=== PATIENT | male | born 1945 | race Caucasian/White ===

== ENCOUNTER 2019-08-07 08:36 | Day surgery (SDC) | payer MEDICARE, OTHER ==
[~2019-08-07 08:36] MED LIST: ASPI81CH PO; ATOR40TA PO; CARV6.25; DELTASONE20 MG PO; HYDR1TAB94 PO; INSUASPI SC; INSULANPEN SQ; LOSA50 PO; METO50ER PO; PREG25; Prilosec Otc20 MG PO; TAMS.4ER PO
--- NOTE | 2019-08-07 10:21 | NUR ---
PT REPORT FROM GABRIEL Copeland RN. PT AT BEDSIDE. WHITE MIXING OPERATOR EQUAL. LEFT PUSH WITH FOOT SLIGHTYL WEAKER THAN LEFT. PULLS BILATERALLY EQUAL. PT IS AT BASELINE AT THIS TIME. BANDAID TO LOWER MID BACK WITH NO BLEEDING, HEMATOMA OR PAIN. PROVIDED WARM BLANKETS, REPOSTIONED FOR COMFORT, PROVIDED FLUIDS.
--- NOTE | 2019-08-07 10:39 | NUR ---
pt took a pain pill, which is his normal routine prior to mylegram. placed warm blanket behind back to help with chronic pain. removed shoes and was able to assess eqaul push pulls in bilateral feet.
--- NOTE | 2019-08-07 11:23 | NUR ---
Discharge instructions reviewed with patient. Patient verbalizes understanding. Copy given to patient to take home. Dressing to procedure site clean, dry, intact with no visible drainage, swelling, erythema or bruising noted. Patient States Post-Procedure ride home has been arranged. NO NUERO CHANGES T/O RECOVERY.
== END 2019-08-07 22:42 | disposition home or self-care (01) ==
LOC: RAD 08:36
DX: M51.06 Intervertebral disc disorders with myelopathy, lumbar region (principal); M51.16 Intervertebral disc disorders with radiculopathy, lumbar region; I25.10 Atherosclerotic heart disease of native coronary artery without angina pectoris; I11.9 Hypertensive heart disease without heart failure; E78.00 Pure hypercholesterolemia, unspecified; Z96.9 Presence of functional implant, unspecified; E66.9 Obesity, unspecified; M48.02 Spinal stenosis, cervical region; M47.896 Other spondylosis, lumbar region; M43.16 Spondylolisthesis, lumbar region; M47.26 Other spondylosis with radiculopathy, lumbar region; G89.29 Other chronic pain; M46.1 Sacroiliitis, not elsewhere classified; E11.42 Type 2 diabetes mellitus with diabetic polyneuropathy; M96.1 Postlaminectomy syndrome, not elsewhere classified; Z79.4 Long term (current) use of insulin; Z79.82 Long term (current) use of aspirin; Z79.899 Other long term (current) drug therapy
CPT/HCPCS: 62304; 72132; Q9966

== ENCOUNTER → 2020-10-23 | Outpatient (CLI) | payer MEDICARE, OTHER ==
[2020-10-23 13:27] LABS: U Amphetamine Screen Not Detected; U Barbituate Screen Not Detected; U Benzodiazapine Screen Not Detected; U Buprenorphine Screen Not Detected; U Cannabinoids Screen Not Detected; U Cocaine Screen Not Detected; U Methadone Screen Not Detected; U Methamphetamine Screen Not Detected; U Opiates Screen DETECTED; U Oxycodone Screen Not Detected; U Phencyclidine Screen Not Detected; U Propoxyphene Screen Not Detected
== END | disposition home or self-care (01) ==
LOC: LAB SHORT 09:28
PROVIDERS: Physical Medicine & Rehabilitation Pain Medicine
DX: Z51.81 Encounter for therapeutic drug level monitoring (principal); Z79.891 Long term (current) use of opiate analgesic